=== PATIENT | female | born 1965 | race Caucasian/White ===

== ENCOUNTER 2016-12-02 14:11 | Emergency (ER) | payer OTHER ==
[2016-12-02 14:24] VITALS: BP 103/58
[2016-12-02] MEDS ORDERED: diphenhydrAMINE HCL 50 MG/ML VIAL IM ONE (14:31)
[2016-12-02] MEDS ORDERED: METHYLPREDNISOLONE ACETATE 80 MG/ML VIAL IM ONE (14:31)
[2016-12-02] MEDS ORDERED: METHYLPREDNISOLONE ACETATE 80 MG/ML VIAL ONE (14:52)
[2016-12-02] MEDS ORDERED: diphenhydrAMINE HCL 50 MG/ML VIAL ONE (14:53)
--- NOTE | 2016-12-02 14:57 | ERNOTE ---
Integumentary HPI - Narrative Date of Service: 12/02/16 - General Time Seen by Provider: 12/02/16 14:27 Source: patient Exam Limitations: no limitations - Immun/Allergies/Home Medications Immunizations: IMMUNIZATION HX Immunizations Up to Date Yes History of Influenza Vaccine Yes Hx Pneumococcal Vaccination No Allergies/Adverse Reactions: Allergies Allergy/AdvReac Type Severity Reaction Status Date / Time latex Allergy Mild Other Verified 12/02/16 14:24 Home Medications: HOME MEDICATIONS Atenolol [Tenormin] 25 mg PO DAILY 12/02/16 [Last Taken Unknown] Loratadine [Claritin] 10 mg PO DAILY 12/02/16 [Last Taken Unknown] Simvastatin 10 mg PO HS 12/02/16 [Last Taken Unknown] Xanax 12/02/16 [Last Taken Unknown] predniSONE [Prednisone] 3 tab PO DAILY #9 tab 12/02/16 [Last Taken Unknown] - History of Present Illness Narrative: Pt. comes in with c/o rash diffuse that she has been under treatment from her PCP for 3 days that is worsening and not improving. Pt. states that rash is caused from likely pool chemicals and worsened dramatically when she went in the hot tub last night. Pt. denies any SOB, CP, NVD, fever, or other recent illness. Review of Systems - Review of Systems Constitutional: Present: recent illness. Absent: fever, chills, weakness, fatigue, malaise EYE: Present: no symptoms reported ENT: Present: no symptoms reported. Absent: throat swelling Respiratory: Present: no symptoms reported. Absent: shortness of breath, cough , wheezing Cardiology: Present: no symptoms reported. Absent: chest pain, palpitations, edema Gastrointestinal/Abdominal: Present: no symptoms reported. Absent: nausea, vomiting, diarrhea, abdominal pain Genitourinary: Present: no symptoms reported Musculoskeletal: Present: no symptoms reported. Absent: back pain, neck pain, joint pain Skin: Present: rash - diffuse Neurological: Present: no symptoms reported. Absent: headache, dizziness/light- headedness, numbness, tingling All Other Systems: All systems neg except as marked - Patient's Past Medical History Patient History - Medical: No pertinent hx Patient History - Cardiac/Respiratory: No pertinent hx Patient History - Cancer: No Hx of Cancer Patient History - Surgical Procedures: Other LMP (females 10-50): Menopausal - Social History Living Situations: assisted living Psych History: No pertinent hx Smoking Status: Former smoker - Immunizations Immunizations Up to Date: Yes Hx Pneumococcal Vaccination: No History of Influenza Vaccine: Yes Physical Exam - Physical Exam General Appearance: Present: wd/wn, alert, no apparent distress Eye Exam: Normal inspection: bilateral, PERRL: bilateral, EOMI: bilateral Ears, Nose, Throat: Present: normal ENT inspection, normal pharynx Neck: Absent: lymphadenopathy (R), lymphadenopathy (L) Respiratory: Present: no respiratory distress, normal breath sounds, no accessory muscle use, chest nontender, lungs clear Cardiovascular/Chest: Present: regular rate, rhythm, no murmur, normal peripheral pulses Neurological Exam: Present: alert, oriented, normal mood/affect, no motor/ sensory deficits Skin Exam: Present: skin rash - diffuse hive-like rash ED Progress - Vital Signs Patient's Vital Signs:: I have reviewed the patient's vital signs. Vital Signs: Vital Signs 12/02/16 14:20 Temperature 36.5 C Pulse Rate 61 Respiratory 16 Rate Blood Pressure 103/58 O2 Sat by Pulse 98 Oximetry - Progress/Reassessment Chief Complaint: Rash Departure Clinical Impression: Allergic reaction Qualifiers: Encounter type: initial encounter Qualified Code(s): T78.40XA - Allergy, unspecified, initial encounter - Departure Disposition: Home self-care Condition: Good Instructions: Contact Dermatitis, Zavy-um-Tolt Additional Instructions: Please follow up with primary provider in 2-3 days. Please take Benedryl 25mg every six hours. Referrals: Nidia Cooley DO [Primary Care Provider] - Prescriptions: predniSONE [Prednisone] 3 tab PO DAILY #9 tab
--- OUTSIDE RECORDS SUMMARY | 2016-12-02 16:59 | XMS REPORT | Summary of Care ---
:1965 Author Organization [facility] Team Providers Name Role Phone Carol Walker Primary Care Physician [phone] Problem List Condition Effective Dates Status Health Status Informant Depressed(Confirmed) Active patient GERD (gastroesophageal reflux Active patient disease)(Confirmed) High cholesterol(Confirmed) Active patient HTN (hypertension)(Confirmed) Active patient Colitis(Confirmed) Active patient Encounter 10/27/14 - 10/27/[address] [address]- [facility] Discharge Diagnosis: Otitis externa 380.10 Discharge Disposition: Discharged to Home or Self Care Attending Physician: Elbert Rossi MD Vital Signs Most recent to oldest (Reference Range): 1 Respiratory Rate (12-18 Br PM) 18 Br PM (10/27/14 2:03 PM) Most recent to oldest (Reference Range): 1 Pulse Rate (60-100 BPM) 78 BPM (10/27/14 2:03 PM) Most recent to oldest (Reference Range): 1 Pulse Oximetry (90-100 %) 99 % (10/27/14 2:03 PM) Most recent to oldest (Reference Range): 1 Blood Pressure (90-140/65-90 mmHg) 136/66mmHg (10/27/14 2:03 PM) Most recent to oldest (Reference Range): 1 Temperature Celsius (36.1-38.0 Degrees C) 36.9 Degrees C (10/27/14 2:03 PM) Most recent to oldest (Reference Range): 1 Height 160 cm (10/27/14 2:03 PM) Most recent to oldest (Reference Range): 1 Weight 74 kg (10/27/14 2:03 PM) Most recent to oldest (Reference Range): 1 Body Mass Index 29 kg/m2 (10/27/14 2:03 PM) Allergies, Adverse Reactions, Alerts Substance Reaction Severity Status LamISIL Topical Active Latex Active Medications albuterol (Albuterol HFA 90 mcg/Puff MDI) 2 Puff, Inhalation, every 6 hours, Refills: 0 Ordering provider: Bobo Almeida MD atenolol , By Mouth, once a day, Refills: 0 hydrochlorothiazide , By Mouth, once a day, Refills: 0 hydrocortisone/neomycin/polymyxin B otic (Cortisporin Otic 1%-0.35%-72081 unit/ ml suspension) 4 Drop, Left Ear, 4 Times/Day, 7 Day(s), Refills: 0 Ordering provider: Coreen Chairez MD loratadine (Claritin) 10 mg, By Mouth, once a day, Refills: 0 mesalamine (Asacol) , Refills: 0 simvastatin , By Mouth, Bedtime, Refills: 0 Results No data available for this section Immunizations No data available for this section Procedures No data available for this section Social History No data available for this section Assessment and Plan No data available for this section
== END 2016-12-02 15:50 | disposition home or self-care (01) ==
LOC: ER 14:11
DX: R21 Rash and other nonspecific skin eruption (principal); T78.40XA Allergy, unspecified, initial encounter; Z87.891 Personal history of nicotine dependence